=== PATIENT | male | born 1940 | race Hispanic/Latino ===

== ENCOUNTER 2020-09-04 08:57 | Observation (INO) | payer MEDICARE, MEDICAID ==
[2020-09-04 09:37] LABS: #Eosinphils 0.2 10x3/uL (0.0-0.5); #Monocytes 0.6 10x3/uL (0.0-1.1); #Neutrophils 6.2 10x3/uL (1.5-8.4); %Basophils 0.5 % (0.0-2.0); %Eosinophils 2.6 % (0.0-6.0); %Lymphocytes 15.1 % (18.0-47.0); %Monocytes 6.6 % (0.0-10.0); %Neutrophils 74.4 % (40.0-75.0); Hemoglobin 12.7 g/dL (13.5-17.5); Mean Corpuscular HGB CONC 33.5 g/dL (32.0-36.0); Mean Corpuscular Hemoglobin 32.3 pg (27.0-33.0); Mean Corpuscular Volume 96.4 fl (81.2-95.1); Mean Platelet Volume 10.9 fl (7.4-10.4); Platelet Count 172 10x3/uL (150-450); Red Blood Cell (RBC) Count 3.93 10x6/uL (4.32-5.72); White Blood Cell (WBC) Count 8.3 10x3/uL (3.5-10.5)
[2020-09-04 10:34] LABS: ALT (SGPT) 17 U/L (8-55); AST (SGOT) 23 U/L (5-34); Albumin 4.2 g/dL (3.4-4.8); Alkaline Phosphatase 70 U/L (40-110); Anion Gap 17 mmol/L (10-20); BUN (Urea Nitrogen) 12 mg/dL (8.4-25.7); Bilirubin, Total 0.6 mg/dL (0.2-1.2); Calc. Creatinine Clearance 0 mL/min (70-130); Carbon Dioxide 25 mmol/L (23-31); Chloride 95 mmol/L (98-107); Globulin 3.2 g/dL (2.4-3.5); Glucose 273 mg/dL (83-110); Potassium 3.8 mmol/L (3.5-5.1); Protein, Total 7.4 g/dL (5.8-8.1); Sodium 133 mmol/L (136-145)
[2020-09-04 10:41] LABS: CKMB 2.8 ng/mL (0-6.6)
[2020-09-04] MEDS ORDERED: Nitroglycerin 2% Ointment 1 INCH/1 GM Packet TOP PRN (12:03)
[2020-09-04] MEDS ORDERED: Acetaminophen 325 MG TAB PO PRN (12:05)
[2020-09-04 13:05] LABS: Troponin I 0.279 ng/mL (< 0.028)
[2020-09-04 13:39] LABS: SARS-CoV-2 NAA Rapid Test Not Detected (NotDetected)
[2020-09-04] MEDS ORDERED: Potassium Chloride 20 MEQ TAB PO SCH (15:30)
[2020-09-04] MEDS ORDERED: Clopidogrel Bisulfate 75 MG TAB PO SCH (15:30)
[2020-09-04] MEDS ORDERED: Furosemide 20 MG/2 ML VIAL SLOW IVP SCH (15:30)
[2020-09-04 15:31] VITALS: BMI 36.0
[2020-09-04 15:36] LABS: Troponin I 0.305 ng/mL (< 0.028)
[2020-09-04 17:04] VITALS: BP 164/78; TEMP 97.7
[2020-09-04] MEDS: Carvedilol 6.25 MG TAB PO SCH (17:27)
[2020-09-04] MEDS ORDERED: Atorvastatin Calcium 20 MG TAB PO SCH (21:00)
[2020-09-04] MEDS ORDERED: DESMOPRESSIN 0.2 MG PO SCH (21:00)
[2020-09-04] MEDS ORDERED: Carvedilol 6.25 MG TAB PO SCH (21:00)
[2020-09-04] MEDS: Isosorbide Mononitrate 20 MG TAB PO SCH (21:18)
[2020-09-04] MEDS: Docusate 100 MG CAP PO SCH (21:18)
[2020-09-05] MEDS ORDERED: Levothyroxine Sodium 50 MCG TAB PO SCH (06:00)
[2020-09-05] MEDS: Docusate 100 MG CAP PO SCH (08:05)
[2020-09-05] MEDS: Carvedilol 6.25 MG TAB PO SCH (08:05)
[2020-09-05] MEDS: Isosorbide Mononitrate 20 MG TAB PO SCH (08:05)
[2020-09-05] MEDS ORDERED: Clopidogrel Bisulfate 75 MG TAB PO SCH (09:00)
[2020-09-05] MEDS ORDERED: Fish Oil 1,000 MG CAP PO SCH (09:00)
[2020-09-05] MEDS ORDERED: Multivitamin W/ Minerals 1 TAB PO SCH (09:00)
[2020-09-05] MEDS ORDERED: Ezetimibe 10 MG TAB PO SCH (09:00)
[2020-09-05] MEDS ORDERED: metFORMIN 500 MG TAB PO SCH (09:00)
[2020-09-05] MEDS ORDERED: Lisinopril 5 MG TAB PO SCH (09:48)
[2020-09-05] MEDS ORDERED: Losartan 25 MG TAB PO SCH (10:00)
[2020-09-06] MEDS ORDERED: Prasugrel 10 MG TAB PO SCH (09:00)
[2020-09-06] MEDS ORDERED: Losartan 25 MG TAB PO SCH (09:00)
== END 2020-09-05 14:41 | disposition home or self-care (01) ==
LOC: CSHERS 08:57 → CSHTELE 11:56 → INTOOBSV 11:56 → CSHTELE 14:45 → UNDOADMIN 14:45 → UNDODISIN 09-05 14:41
PROVIDERS: ADMIT Specialist; ATTEND Specialist
DX: R07.9 Chest pain, unspecified (principal); I25.118 Atherosclerotic heart disease of native coronary artery with other forms of angina pectoris; Z95.5 Presence of coronary angioplasty implant and graft; I10 Essential (primary) hypertension; E78.2 Mixed hyperlipidemia; E11.9 Type 2 diabetes mellitus without complications; G47.33 Obstructive sleep apnea (adult) (pediatric); Z79.899 Other long term (current) drug therapy; Z79.84 Long term (current) use of oral hypoglycemic drugs; I25.2 Old myocardial infarction; M10.9 Gout, unspecified; Z95.1 Presence of aortocoronary bypass graft; Z79.02 Long term (current) use of antithrombotics/antiplatelets; Z20.822 Contact with and (suspected) exposure to COVID-19
CPT/HCPCS: 71045; 80053; 82553; 84484 ×2; 85025; 93005; 96374; 99285; G0378 ×3; U0002; 36415; J1940

== ENCOUNTER 2020-09-13 11:16 | Inpatient (IN) | payer MEDICARE, MEDICAID ==
[2020-09-13 12:16] LABS: #Eosinphils 0.2 10x3/uL (0.0-0.5); #Monocytes 0.5 10x3/uL (0.0-1.1); #Neutrophils 4.9 10x3/uL (1.5-8.4); %Basophils 0.6 % (0.0-2.0); %Eosinophils 2.4 % (0.0-6.0); %Lymphocytes 15.7 % (18.0-47.0); %Monocytes 7.3 % (0.0-10.0); %Neutrophils 72.7 % (40.0-75.0); Hemoglobin 12.6 g/dL (13.5-17.5); Mean Corpuscular HGB CONC 34.1 g/dL (32.0-36.0); Mean Corpuscular Volume 93.9 fl (81.2-95.1); Mean Platelet Volume 10.3 fl (7.4-10.4); Platelet Count 218 10x3/uL (150-450); RBC Distribution Width 13.2 % (11.5-14.5); Red Blood Cell (RBC) Count 3.94 10x6/uL (4.32-5.72); White Blood Cell (WBC) Count 6.7 10x3/uL (3.5-10.5)
[2020-09-13 12:28] LABS: ALT (SGPT) 26 U/L (8-55); AST (SGOT) 35 U/L (5-34); Albumin 4.2 g/dL (3.4-4.8); Alkaline Phosphatase 71 U/L (40-110); Anion Gap 14 mmol/L (10-20); BUN (Urea Nitrogen) 11 mg/dL (8.4-25.7); Bilirubin, Total 0.5 mg/dL (0.2-1.2); Calc. Creatinine Clearance 0 mL/min (70-130); Carbon Dioxide 27 mmol/L (23-31); Chloride 85 mmol/L (98-107); Globulin 3.5 g/dL (2.4-3.5); Glucose 183 mg/dL (83-110); Lipase 35 U/L (8-78); Potassium 5.3 mmol/L (3.5-5.1); Protein, Total 7.7 g/dL (5.8-8.1); Sodium 121 mmol/L (136-145)
[2020-09-13 12:30] LABS: Bilirubin Neg (Negative); Blood, Urine Negative (Negative); Clarity Clear (Clear); Glucose, Urine (Dipstick) Normal (Negative); Ketone, Urine Negative (Negative); Leukocyte Negative (Negative); Nitrite Negative (Negative); Protein, Urine (Dipstick) Negative (Neg-Trace); Specific Gravity, Urine 1.015 (1.002-1.036); Urobilinogen Normal mg/dL (Less than 2); pH, Urine 6.5 (5.0-9.0)
[2020-09-13 12:48] LABS: CKMB 2.5 ng/mL (0-6.6)
[2020-09-13] MEDS ORDERED: Ondansetron PF 4 MG/2 ML Vial ONE (13:48)
[2020-09-13] MEDS ORDERED: Acetaminophen 500 MG TAB ONE (15:24)
[2020-09-13] MEDS ORDERED: Acetaminophen 325 MG TAB PO PRN (15:45)
[2020-09-13] MEDS ORDERED: Ondansetron ODT 4 MG TAB PO PRN (15:45)
[2020-09-13] MEDS ORDERED: Dextrose 5% in Water 1,000 ML IV PRN (18:19)
[2020-09-13] MEDS ORDERED: Dextrose 50% Abboject 50 ML SYRINGE SLOW IVP PRN (18:19)
[2020-09-13] MEDS: Famotidine 20 MG TAB PO SCH (20:46)
[2020-09-13] MEDS: Carvedilol 6.25 MG TAB PO SCH (20:46)
[2020-09-13] MEDS: Isosorbide Mononitrate 20 MG TAB PO SCH (22:56)
[2020-09-13] MEDS ORDERED: diphenhydrAMINE 25 MG CAP PO SCH (23:45)
[2020-09-14 00:50] VITALS: BMI 36.3
[2020-09-14 06:16] LABS: #Eosinphils 0.2 10x3/uL (0.0-0.5); #Monocytes 0.7 10x3/uL (0.0-1.1); #Neutrophils 3.6 10x3/uL (1.5-8.4); %Basophils 0.5 % (0.0-2.0); %Eosinophils 3.4 % (0.0-6.0); %Lymphocytes 26.7 % (18.0-47.0); %Monocytes 10.7 % (0.0-10.0); %Neutrophils 57.4 % (40.0-75.0); Hemoglobin 12.3 g/dL (13.5-17.5); Mean Corpuscular HGB CONC 33.6 g/dL (32.0-36.0); Mean Corpuscular Hemoglobin 31.9 pg (27.0-33.0); Mean Corpuscular Volume 95.1 fl (81.2-95.1); Mean Platelet Volume 10.6 fl (7.4-10.4); Platelet Count 206 10x3/uL (150-450); RBC Distribution Width 13.3 % (11.5-14.5); Red Blood Cell (RBC) Count 3.85 10x6/uL (4.32-5.72); White Blood Cell (WBC) Count 6.3 10x3/uL (3.5-10.5)
[2020-09-14 06:28] LABS: Anion Gap 14 mmol/L (10-20); BUN (Urea Nitrogen) 8 mg/dL (8.4-25.7); Calc. Creatinine Clearance 111 mL/min (70-130); Calcium 8.5 mg/dL (7.8-10.44); Carbon Dioxide 27 mmol/L (23-31); Chloride 90 mmol/L (98-107); Glucose 105 mg/dL (83-110); Potassium 4.4 mmol/L (3.5-5.1); Sodium 127 mmol/L (136-145)
[2020-09-14] MEDS: Atorvastatin Calcium 20 MG TAB PO SCH (08:50)
[2020-09-14] MEDS: Prasugrel 10 MG TAB PO SCH (08:50)
[2020-09-14] MEDS: Isosorbide Mononitrate 20 MG TAB PO SCH ×2 (08:50→23:24)
[2020-09-14] MEDS: Ezetimibe 10 MG TAB PO SCH (08:50)
[2020-09-14] MEDS: Famotidine 20 MG TAB PO SCH ×2 (08:50→23:23)
[2020-09-14] MEDS: Lisinopril 5 MG TAB PO SCH (08:50)
[2020-09-14] MEDS: Levothyroxine Sodium 50 MCG TAB PO SCH (08:50)
[2020-09-14] MEDS: Carvedilol 6.25 MG TAB PO SCH (08:50)
[2020-09-14] MEDS ORDERED: Enoxaparin Sodium 40 MG/0.4 ML SYRINGE SC SCH (09:00)
[2020-09-14] MEDS: HumaLOG 300 UNITS/3 ML VIAL SC PRN (13:03)
[2020-09-14] MEDS: Sodium Chloride 0.9% 1,000 ML IV SCH ×2 (17:16→23:28)
[2020-09-14] MEDS ORDERED: diphenhydrAMINE 25 MG CAP PO SCH (22:45)
[2020-09-15] MEDS: Carvedilol 6.25 MG TAB PO SCH ×3 (00:12→22:15)
[2020-09-15 04:29] LABS: #Eosinphils 0.1 10x3/uL (0.0-0.5); #Monocytes 0.8 10x3/uL (0.0-1.1); #Neutrophils 5.1 10x3/uL (1.5-8.4); %Basophils 0.5 % (0.0-2.0); %Eosinophils 1.7 % (0.0-6.0); %Lymphocytes 18.3 % (18.0-47.0); %Monocytes 10.6 % (0.0-10.0); %Neutrophils 67.7 % (40.0-75.0); Mean Corpuscular HGB CONC 33.2 g/dL (32.0-36.0); Mean Corpuscular Hemoglobin 31.9 pg (27.0-33.0); Mean Platelet Volume 10.4 fl (7.4-10.4); Platelet Count 210 10x3/uL (150-450); RBC Distribution Width 13.6 % (11.5-14.5); Red Blood Cell (RBC) Count 3.76 10x6/uL (4.32-5.72); White Blood Cell (WBC) Count 7.6 10x3/uL (3.5-10.5)
[2020-09-15 04:41] LABS: Anion Gap 16 mmol/L (10-20); BUN (Urea Nitrogen) 15 mg/dL (8.4-25.7); Calc. Creatinine Clearance 80 mL/min (70-130); Calcium 8.6 mg/dL (7.8-10.44); Carbon Dioxide 24 mmol/L (23-31); Chloride 100 mmol/L (98-107); Glucose 124 mg/dL (83-110); Potassium 4.8 mmol/L (3.5-5.1); Sodium 135 mmol/L (136-145)
[2020-09-15] MEDS: Prasugrel 10 MG TAB PO SCH (08:34)
[2020-09-15] MEDS: Levothyroxine Sodium 50 MCG TAB PO SCH (08:35)
[2020-09-15] MEDS: Lisinopril 5 MG TAB PO SCH (08:35)
[2020-09-15] MEDS: Famotidine 20 MG TAB PO SCH ×2 (08:35→22:16)
[2020-09-15] MEDS: Atorvastatin Calcium 20 MG TAB PO SCH (08:36)
[2020-09-15] MEDS: Isosorbide Mononitrate 20 MG TAB PO SCH (08:36)
[2020-09-15] MEDS: Ezetimibe 10 MG TAB PO SCH (08:37)
[2020-09-15] MEDS: Sodium Chloride 0.9% 1,000 ML IV SCH (09:29)
[2020-09-15] MEDS: HumaLOG 300 UNITS/3 ML VIAL SC PRN (12:37)
[2020-09-16] MEDS: Isosorbide Mononitrate 20 MG TAB PO SCH ×3 (00:41→20:36)
[2020-09-16] MEDS ORDERED: diphenhydrAMINE 25 MG CAP PO SCH ×2 (01:30→23:45)
[2020-09-16 04:44] LABS: #Eosinphils 0.2 10x3/uL (0.0-0.5); #Monocytes 0.7 10x3/uL (0.0-1.1); #Neutrophils 5.9 10x3/uL (1.5-8.4); %Basophils 0.5 % (0.0-2.0); %Eosinophils 2.6 % (0.0-6.0); %Lymphocytes 20.3 % (18.0-47.0); %Monocytes 8.3 % (0.0-10.0); %Neutrophils 67.5 % (40.0-75.0); Hemoglobin 11.7 g/dL (13.5-17.5); Mean Corpuscular HGB CONC 32.3 g/dL (32.0-36.0); Mean Corpuscular Hemoglobin 31.4 pg (27.0-33.0); Mean Corpuscular Volume 97.1 fl (81.2-95.1); Mean Platelet Volume 10.3 fl (7.4-10.4); Platelet Count 218 10x3/uL (150-450); RBC Distribution Width 14.1 % (11.5-14.5); Red Blood Cell (RBC) Count 3.73 10x6/uL (4.32-5.72); White Blood Cell (WBC) Count 8.7 10x3/uL (3.5-10.5)
[2020-09-16 04:56] LABS: Anion Gap 16 mmol/L (10-20); BUN (Urea Nitrogen) 12 mg/dL (8.4-25.7); Calc. Creatinine Clearance 99 mL/min (70-130); Carbon Dioxide 28 mmol/L (23-31); Chloride 100 mmol/L (98-107); Glucose 121 mg/dL (83-110); Potassium 4.5 mmol/L (3.5-5.1); Sodium 139 mmol/L (136-145)
[2020-09-16] MEDS: Atorvastatin Calcium 20 MG TAB PO SCH (08:15)
[2020-09-16] MEDS: Lisinopril 5 MG TAB PO SCH (08:15)
[2020-09-16] MEDS: Levothyroxine Sodium 50 MCG TAB PO SCH (08:15)
[2020-09-16] MEDS: Carvedilol 6.25 MG TAB PO SCH ×2 (08:15→20:36)
[2020-09-16] MEDS: Prasugrel 10 MG TAB PO SCH (08:15)
[2020-09-16] MEDS: Ezetimibe 10 MG TAB PO SCH (08:15)
[2020-09-16] MEDS: Famotidine 20 MG TAB PO SCH ×2 (08:15→20:36)
[2020-09-16] MEDS: HumaLOG 300 UNITS/3 ML VIAL SC PRN (23:33)
[2020-09-17] MEDS: Isosorbide Mononitrate 20 MG TAB PO SCH ×2 (11:28→20:10)
[2020-09-17] MEDS: Atorvastatin Calcium 20 MG TAB PO SCH (11:29)
[2020-09-17] MEDS: Famotidine 20 MG TAB PO SCH ×2 (11:29→20:10)
[2020-09-17] MEDS: Lisinopril 5 MG TAB PO SCH (11:29)
[2020-09-17] MEDS: Levothyroxine Sodium 50 MCG TAB PO SCH (11:29)
[2020-09-17] MEDS: Ezetimibe 10 MG TAB PO SCH (11:29)
[2020-09-17] MEDS: Prasugrel 10 MG TAB PO SCH (19:15)
[2020-09-17 23:08] LABS: Anion Gap 13 mmol/L (10-20); BUN (Urea Nitrogen) 14 mg/dL (8.4-25.7); Calc. Creatinine Clearance 87 mL/min (70-130); Calcium 8.7 mg/dL (7.8-10.44); Carbon Dioxide 30 mmol/L (23-31); Chloride 98 mmol/L (98-107); Glucose 113 mg/dL (83-110); Magnesium 1.6 mg/dL (1.6-2.6); Potassium 4.3 mmol/L (3.5-5.1); Sodium 137 mmol/L (136-145)
[2020-09-17] MEDS ORDERED: Magnesium Sulfate/D5W 1 GM/100 ML BAG IVPB SCH (23:15)
[2020-09-18 05:11] LABS: Anion Gap 15 mmol/L (10-20); BUN (Urea Nitrogen) 12 mg/dL (8.4-25.7); Calc. Creatinine Clearance 101 mL/min (70-130); Carbon Dioxide 27 mmol/L (23-31); Chloride 100 mmol/L (98-107); Glucose 127 mg/dL (83-110); Potassium 4.3 mmol/L (3.5-5.1); Sodium 138 mmol/L (136-145)
[2020-09-18] MEDS: Levothyroxine Sodium 50 MCG TAB PO SCH (08:44)
[2020-09-18] MEDS: Atorvastatin Calcium 20 MG TAB PO SCH (08:45)
[2020-09-18] MEDS: Prasugrel 10 MG TAB PO SCH (08:45)
[2020-09-18] MEDS: Isosorbide Mononitrate 20 MG TAB PO SCH ×2 (08:45→21:51)
[2020-09-18] MEDS: Famotidine 20 MG TAB PO SCH ×2 (08:45→21:52)
[2020-09-18] MEDS: Ezetimibe 10 MG TAB PO SCH (08:45)
[2020-09-18] MEDS: Lisinopril 5 MG TAB PO SCH (08:45)
[2020-09-18] MEDS: HumaLOG 300 UNITS/3 ML VIAL SC PRN (21:52)
[2020-09-19] MEDS: Ezetimibe 10 MG TAB PO SCH (08:35)
[2020-09-19] MEDS: Atorvastatin Calcium 20 MG TAB PO SCH (08:35)
[2020-09-19] MEDS: Famotidine 20 MG TAB PO SCH (08:35)
[2020-09-19] MEDS: Prasugrel 10 MG TAB PO SCH (08:35)
[2020-09-19] MEDS: Levothyroxine Sodium 50 MCG TAB PO SCH (08:36)
[2020-09-19] MEDS: Lisinopril 5 MG TAB PO SCH (08:36)
[2020-09-19] MEDS: Isosorbide Mononitrate 20 MG TAB PO SCH (08:36)
[2020-09-19 11:49] VITALS: TEMP 97.7
[2020-09-19 11:51] VITALS: BP 127/80
== END 2020-09-19 15:45 | disposition home or self-care (01) | DRG 312 ==
LOC: CSHERS 11:16 → CSHTELE 16:57
PROVIDERS: ADMIT Family Medicine; ATTEND Internal Medicine
DX: I95.1 Orthostatic hypotension (principal); E87.1 Hypo-osmolality and hyponatremia; E03.9 Hypothyroidism, unspecified; E78.5 Hyperlipidemia, unspecified; I25.10 Atherosclerotic heart disease of native coronary artery without angina pectoris; G47.33 Obstructive sleep apnea (adult) (pediatric); K21.9 Gastro-esophageal reflux disease without esophagitis; E87.5 Hyperkalemia; D64.9 Anemia, unspecified; R35.8 Other polyuria; E86.1 Hypovolemia; E11.22 Type 2 diabetes mellitus with diabetic chronic kidney disease; I12.9 Hypertensive chronic kidney disease with stage 1 through stage 4 chronic kidney disease, or unspecified chronic kidney disease; N18.2 Chronic kidney disease, stage 2 (mild); I44.1 Atrioventricular block, second degree; Z79.84 Long term (current) use of oral hypoglycemic drugs; Z85.46 Personal history of malignant neoplasm of prostate; Z88.8 Allergy status to other drugs, medicaments and biological substances; Z95.1 Presence of aortocoronary bypass graft; Z98.49 Cataract extraction status, unspecified eye; Z79.82 Long term (current) use of aspirin; Z95.5 Presence of coronary angioplasty implant and graft; Z79.890 Hormone replacement therapy; Z79.899 Other long term (current) drug therapy; Z82.49 Family history of ischemic heart disease and other diseases of the circulatory system; D63.1 Anemia in chronic kidney disease
CPT/HCPCS: 36415; 36416; 71045; 80048; 80053; 81003; 82553; 83690; 83735; 83930; 83935; 84300; 84443; 84484; 85025; 93005; 93010; 96374; J1815; J2405; J3475; Q0163

== ENCOUNTER 2021-04-29 10:59 | Inpatient (IN) | payer MEDICARE, MEDICAID ==
[2021-04-29 13:16] LABS: #Basophils 0.1 10x3/uL (0.0-0.2); #Eosinphils 0.1 10x3/uL (0.0-0.5); #Monocytes 0.8 10x3/uL (0.0-1.1); #Neutrophils 5.6 10x3/uL (1.5-8.4); %Basophils 0.9 % (0.0-2.0); %Eosinophils 1.8 % (0.0-6.0); %Lymphocytes 9.1 % (18.0-47.0); %Monocytes 10.4 % (0.0-10.0); %Neutrophils 73.3 % (40.0-75.0); Mean Corpuscular HGB CONC 32.1 g/dL (32.0-36.0); Mean Corpuscular Hemoglobin 31.8 pg (27.0-33.0); Mean Corpuscular Volume 99.1 fl (81.2-95.1); Platelet Count 255 10x3/uL (150-450); RBC Distribution Width 16.1 % (11.5-14.5); Red Blood Cell (RBC) Count 3.46 10x6/uL (4.32-5.72); White Blood Cell (WBC) Count 7.6 10x3/uL (3.5-10.5)
[2021-04-29] MEDS ORDERED: Meclizine HCl 25 MG TAB ONE (13:24)
[2021-04-29 13:33] LABS: ALT (SGPT) 17 U/L (8-55); AST (SGOT) 20 U/L (5-34); Albumin 3.9 g/dL (3.4-4.8); Alkaline Phosphatase 154 U/L (40-110); Anion Gap 15 mmol/L (10-20); BUN (Urea Nitrogen) 14 mg/dL (8.4-25.7); Bilirubin, Total 0.6 mg/dL (0.2-1.2); Calc. Creatinine Clearance 0 mL/min (70-130); Calcium 8.3 mg/dL (7.8-10.44); Carbon Dioxide 26 mmol/L (23-31); Chloride 98 mmol/L (98-107); Globulin 3.2 g/dL (2.4-3.5); Glucose 131 mg/dL (83-110); Magnesium 1.4 mg/dL (1.6-2.6); Potassium 3.8 mmol/L (3.5-5.1); Protein, Total 7.1 g/dL (5.8-8.1); Sodium 135 mmol/L (136-145)
[2021-04-29] MEDS ORDERED: Magnesium 2 GM/50 ML BAG (IN WATER) ONE (13:52)
[2021-04-29 14:01] LABS: SARS-CoV-2 NAA Rapid Test Not Detected (NotDetected)
[2021-04-29 16:37] LABS: Troponin I Less than 0.010 ng/mL (< 0.028)
[2021-04-29] MEDS ORDERED: Dextrose 50% Abboject 50 ML SYRINGE SLOW IVP PRN (17:03)
[2021-04-29] MEDS ORDERED: Ondansetron ODT 4 MG TAB PO PRN (17:03)
[2021-04-29] MEDS ORDERED: Dextrose 5% in Water 1,000 ML IV PRN (17:03)
[2021-04-29] MEDS ORDERED: Acetaminophen 325 MG TAB ONE (17:22)
[2021-04-29 19:37] LABS: Troponin I Less than 0.010 ng/mL (< 0.028)
[2021-04-29 20:38] VITALS: BMI 35.9
[2021-04-29 22:49] LABS: Bilirubin Neg (Negative); Blood, Urine Negative (Negative); Clarity Clear (Clear); Glucose, Urine (Dipstick) Normal (Negative); Ketone, Urine Negative (Negative); Leukocyte Negative (Negative); Nitrite Negative (Negative); Protein, Urine (Dipstick) Negative (Neg-Trace); Specific Gravity, Urine 1.005 (1.002-1.036); Urobilinogen Normal mg/dL (Less than 2)
[2021-04-29 22:52] LABS: Urine Culture Reflex No No
[2021-04-29 22:57] LABS: Bacteria/HPF None Seen HPF (None Seen); RBC/HPF None Seen HPF (0-3); Squamous Epithelial None Seen HPF (0-3); WBC/HPF 0-3 HPF (0-3)
[2021-04-30 06:54] LABS: Hemoglobin 10.6 g/dL (13.5-17.5); Mean Corpuscular HGB CONC 33.2 g/dL (32.0-36.0); Mean Corpuscular Hemoglobin 32.4 pg (27.0-33.0); Mean Corpuscular Volume 97.6 fl (81.2-95.1); Mean Platelet Volume 10.5 fl (7.4-10.4); Platelet Count 236 10x3/uL (150-450); RBC Distribution Width 16.2 % (11.5-14.5); Red Blood Cell (RBC) Count 3.27 10x6/uL (4.32-5.72); White Blood Cell (WBC) Count 6.8 10x3/uL (3.5-10.5)
[2021-04-30 07:08] LABS: MDiff Complete? YES
[2021-04-30 07:12] LABS: Band 23 % (5-11); Eosinophils 2 % (0-10); Lymphocytes 8 % (21-51); Monocytes 9 % (0-10); Myelocyte 1 % (0-0); Neutrophil 53 % (42-75); Nucleated RBC 1 % (0); Platelet Morphology Comment Appears Adequate; Reactive Lymphocytes 4 % (0-10)
[2021-04-30 07:13] LABS: RBC Morphology Normal
[2021-04-30 07:19] LABS: ALT (SGPT) 19 U/L (8-55); AST (SGOT) 22 U/L (5-34); Albumin 3.6 g/dL (3.4-4.8); Alkaline Phosphatase 132 U/L (40-110); Anion Gap 14 mmol/L (10-20); BUN (Urea Nitrogen) 10 mg/dL (8.4-25.7); Bilirubin, Total 0.7 mg/dL (0.2-1.2); Calc. Creatinine Clearance 108 mL/min (70-130); Calcium 7.7 mg/dL (7.8-10.44); Carbon Dioxide 25 mmol/L (23-31); Chloride 100 mmol/L (98-107); Globulin 2.8 g/dL (2.4-3.5); Glucose 163 mg/dL (83-110); Magnesium 1.6 mg/dL (1.6-2.6); Potassium 3.5 mmol/L (3.5-5.1); Protein, Total 6.4 g/dL (5.8-8.1); Sodium 135 mmol/L (136-145)
[2021-04-30] MEDS ORDERED: Minocycline HCl 50 MG CAP PO SCH (09:00)
[2021-04-30] MEDS: Isosorbide Mononitrate 20 MG TAB PO SCH ×2 (10:42→21:24)
[2021-04-30] MEDS: Carvedilol 6.25 MG TAB PO SCH ×2 (10:43→21:23)
[2021-04-30] MEDS: Prasugrel 10 MG TAB PO SCH (10:43)
[2021-04-30] MEDS: Aspirin 81 mg Enteric Coated Tablet PO SCH (10:43)
[2021-04-30] MEDS: Atorvastatin Calcium 20 MG TAB PO SCH (10:43)
[2021-04-30] MEDS: metFORMIN 500 MG TAB PO SCH ×2 (10:43→21:23)
[2021-04-30] MEDS: Ezetimibe 10 MG TAB PO SCH (10:44)
[2021-04-30] MEDS ORDERED: Potassium Chloride 20 MEQ TAB PO SCH (13:00)
[2021-04-30] MEDS ORDERED: Magnesium 2 GM/50 ML 2 GM in Premix Bag 1 BAG IVPB SCH (13:00)
[2021-04-30] MEDS ORDERED: Losartan 25 MG TAB PO SCH (21:00)
[2021-04-30] MEDS: traZODone HCl 50 MG TAB PO PRN (21:23)
[2021-04-30] MEDS: Desmopressin 0.2 mg Tablet PO SCH (21:27)
[2021-05-01] MEDS: Levothyroxine Sodium 50 MCG TAB PO SCH (06:26)
[2021-05-01 09:58] LABS: Anion Gap 11 mmol/L (10-20); BUN (Urea Nitrogen) 12 mg/dL (8.4-25.7); Calc. Creatinine Clearance 110 mL/min (70-130); Calcium 7.4 mg/dL (7.8-10.44); Carbon Dioxide 25 mmol/L (23-31); Chloride 98 mmol/L (98-107); Glucose 171 mg/dL (83-110); Magnesium 1.8 mg/dL (1.6-2.6); Potassium 4.1 mmol/L (3.5-5.1); Sodium 130 mmol/L (136-145)
[2021-05-01] MEDS ORDERED: Calcium Gluconate 4.6 MEQ in Sodium Chloride 0.9% 100 ML IVPB SCH (10:30)
[2021-05-01] MEDS ORDERED: Magnesium 2 GM/50 ML 2 GM in Premix Bag 1 BAG IVPB SCH (10:30)
[2021-05-01] MEDS: Ezetimibe 10 MG TAB PO SCH (12:11)
[2021-05-01] MEDS: Aspirin 81 mg Enteric Coated Tablet PO SCH (12:11)
[2021-05-01] MEDS: Prasugrel 10 MG TAB PO SCH (12:11)
[2021-05-01] MEDS: Atorvastatin Calcium 20 MG TAB PO SCH (12:12)
[2021-05-01] MEDS: Carvedilol 6.25 MG TAB PO SCH ×2 (12:12→21:19)
[2021-05-01] MEDS: metFORMIN 500 MG TAB PO SCH ×2 (12:12→21:20)
[2021-05-01] MEDS: HumaLOG 300 UNITS/3 ML VIAL SC PRN (12:55)
[2021-05-01] MEDS: traZODone HCl 50 MG TAB PO PRN (21:19)
[2021-05-01] MEDS: Desmopressin 0.2 mg Tablet PO SCH (21:20)
[2021-05-02] MEDS: Levothyroxine Sodium 50 MCG TAB PO SCH (05:06)
[2021-05-02] MEDS: Isosorbide Dinitrate 10 MG TAB PO SCH (10:30)
[2021-05-02] MEDS: Aspirin 81 mg Enteric Coated Tablet PO SCH (10:30)
[2021-05-02] MEDS: Atorvastatin Calcium 20 MG TAB PO SCH (10:30)
[2021-05-02] MEDS: metFORMIN 500 MG TAB PO SCH ×2 (10:30→21:17)
[2021-05-02] MEDS: Carvedilol 6.25 MG TAB PO SCH (10:30)
[2021-05-02] MEDS: Ezetimibe 10 MG TAB PO SCH (10:30)
[2021-05-02] MEDS: Prasugrel 10 MG TAB PO SCH (10:31)
[2021-05-02] MEDS ORDERED: Carvedilol 6.25 MG TAB PO SCH (12:00)
[2021-05-02] MEDS: HumaLOG 300 UNITS/3 ML VIAL SC PRN (12:09)
[2021-05-02] MEDS: Carvedilol 12.5 MG TAB PO SCH (18:31)
[2021-05-02] MEDS: Desmopressin 0.2 mg Tablet PO SCH (21:17)
[2021-05-02] MEDS: Acetaminophen 325 MG TAB PO PRN (21:17)
[2021-05-03] MEDS: Levothyroxine Sodium 50 MCG TAB PO SCH (05:17)
[2021-05-03] MEDS: Atorvastatin Calcium 20 MG TAB PO SCH (08:59)
[2021-05-03] MEDS: Aspirin 81 mg Enteric Coated Tablet PO SCH (08:59)
[2021-05-03] MEDS: Carvedilol 12.5 MG TAB PO SCH ×2 (08:59→17:38)
[2021-05-03] MEDS: Isosorbide Dinitrate 10 MG TAB PO SCH (09:00)
[2021-05-03] MEDS: Prasugrel 10 MG TAB PO SCH (09:00)
[2021-05-03] MEDS: metFORMIN 500 MG TAB PO SCH ×2 (09:00→20:24)
[2021-05-03] MEDS: Ezetimibe 10 MG TAB PO SCH (09:00)
[2021-05-03] MEDS: Acetaminophen 325 MG TAB PO PRN ×2 (13:56→20:24)
[2021-05-03] MEDS: HumaLOG 300 UNITS/3 ML VIAL SC PRN (13:57)
[2021-05-03] MEDS ORDERED: predniSONE 20 MG TAB PO SCH (16:00)
[2021-05-03] MEDS: Doxycycline 100 MG CAP PO SCH (17:39)
[2021-05-03] MEDS: Desmopressin 0.2 mg Tablet PO SCH (20:23)
[2021-05-03] MEDS: traZODone HCl 50 MG TAB PO PRN (21:39)
[2021-05-04] MEDS: Doxycycline 100 MG CAP PO SCH ×2 (05:06→17:34)
[2021-05-04] MEDS: Levothyroxine Sodium 50 MCG TAB PO SCH (05:06)
[2021-05-04] MEDS: HumaLOG 300 UNITS/3 ML VIAL SC PRN ×3 (05:19→17:40)
[2021-05-04] MEDS: Atorvastatin Calcium 20 MG TAB PO SCH (09:27)
[2021-05-04] MEDS: Carvedilol 12.5 MG TAB PO SCH ×2 (09:27→17:34)
[2021-05-04] MEDS: Ezetimibe 10 MG TAB PO SCH (09:27)
[2021-05-04] MEDS: Isosorbide Dinitrate 10 MG TAB PO SCH (09:28)
[2021-05-04] MEDS: Prasugrel 10 MG TAB PO SCH (09:28)
[2021-05-04] MEDS: Aspirin 81 mg Enteric Coated Tablet PO SCH (09:28)
[2021-05-04] MEDS: predniSONE 20 MG TAB PO SCH (09:28)
[2021-05-04] MEDS: metFORMIN 500 MG TAB PO SCH ×2 (09:28→21:11)
[2021-05-04 10:24] LABS: #Monocytes 0.6 10x3/uL (0.0-1.1); #Neutrophils 5.2 10x3/uL (1.5-8.4); %Basophils 0.5 % (0.0-2.0); %Eosinophils 0.2 % (0.0-6.0); %Lymphocytes 8.7 % (18.0-47.0); %Monocytes 8.6 % (0.0-10.0); %Neutrophils 79.7 % (40.0-75.0); Hemoglobin 8.7 g/dL (13.5-17.5); Mean Corpuscular HGB CONC 32.8 g/dL (32.0-36.0); Mean Corpuscular Hemoglobin 31.9 pg (27.0-33.0); Mean Corpuscular Volume 97.1 fl (81.2-95.1); Mean Platelet Volume 10.3 fl (7.4-10.4); Platelet Count 234 10x3/uL (150-450); RBC Distribution Width 14.6 % (11.5-14.5); Red Blood Cell (RBC) Count 2.73 10x6/uL (4.32-5.72); White Blood Cell (WBC) Count 6.5 10x3/uL (3.5-10.5)
[2021-05-04 10:30] LABS: Anion Gap 12 mmol/L (10-20); BUN (Urea Nitrogen) 11 mg/dL (8.4-25.7); Calc. Creatinine Clearance 120 mL/min (70-130); Calcium 7.7 mg/dL (7.8-10.44); Carbon Dioxide 27 mmol/L (23-31); Chloride 92 mmol/L (98-107); Glucose 201 mg/dL (83-110); Potassium 4.2 mmol/L (3.5-5.1); Sodium 127 mmol/L (136-145)
[2021-05-04] MEDS: Azithromycin 250 MG TAB PO SCH (17:37)
[2021-05-04] MEDS ORDERED: Azithromycin 250 MG TAB PO SCH (21:00)
[2021-05-04] MEDS: Desmopressin 0.2 mg Tablet PO SCH (21:11)
[2021-05-04] MEDS: traZODone HCl 50 MG TAB PO PRN (21:12)
[2021-05-04] MEDS: Acetaminophen 325 MG TAB PO PRN (21:12)
[2021-05-05 04:11] LABS: #Neutrophils 7.8 10x3/uL (1.5-8.4); %Basophils 0.4 % (0.0-2.0); %Eosinophils 0.3 % (0.0-6.0); %Lymphocytes 8.6 % (18.0-47.0); %Monocytes 10.5 % (0.0-10.0); %Neutrophils 77.9 % (40.0-75.0); Hemoglobin 8.4 g/dL (13.5-17.5); Mean Corpuscular HGB CONC 34.6 g/dL (32.0-36.0); Mean Corpuscular Hemoglobin 32.7 pg (27.0-33.0); Mean Corpuscular Volume 94.6 fl (81.2-95.1); Mean Platelet Volume 10.4 fl (7.4-10.4); Platelet Count 229 10x3/uL (150-450); RBC Distribution Width 14.9 % (11.5-14.5); Red Blood Cell (RBC) Count 2.57 10x6/uL (4.32-5.72)
[2021-05-05 04:22] LABS: Anion Gap 11 mmol/L (10-20); BUN (Urea Nitrogen) 10 mg/dL (8.4-25.7); Calc. Creatinine Clearance 122 mL/min (70-130); Calcium 8.1 mg/dL (7.8-10.44); Carbon Dioxide 27 mmol/L (23-31); Chloride 93 mmol/L (98-107); Glucose 161 mg/dL (83-110); Potassium 4.3 mmol/L (3.5-5.1); Sodium 127 mmol/L (136-145)
[2021-05-05] MEDS: Doxycycline 100 MG CAP PO SCH ×2 (05:17→18:42)
[2021-05-05] MEDS: Levothyroxine Sodium 50 MCG TAB PO SCH (05:18)
[2021-05-05] MEDS ORDERED: Furosemide 40 MG/4 ML VIAL SLOW IVP SCH ×4 (08:45→14:00)
[2021-05-05] MEDS: Atorvastatin Calcium 20 MG TAB PO SCH (09:50)
[2021-05-05] MEDS: metFORMIN 500 MG TAB PO SCH ×2 (09:50→21:52)
[2021-05-05] MEDS: Isosorbide Dinitrate 10 MG TAB PO SCH (09:51)
[2021-05-05] MEDS: Prasugrel 10 MG TAB PO SCH (09:51)
[2021-05-05] MEDS: predniSONE 20 MG TAB PO SCH (09:51)
[2021-05-05] MEDS: Ezetimibe 10 MG TAB PO SCH (09:51)
[2021-05-05] MEDS: Aspirin 81 mg Enteric Coated Tablet PO SCH (09:51)
[2021-05-05] MEDS: Carvedilol 12.5 MG TAB PO SCH ×2 (09:51→18:41)
[2021-05-05] MEDS ORDERED: Furosemide 20 MG/2 ML VIAL SLOW IVP SCH (14:00)
[2021-05-05 14:10] LABS: Magnesium 1.3 mg/dL (1.6-2.6)
[2021-05-05] MEDS: Azithromycin 250 MG TAB PO SCH (18:42)
[2021-05-05] MEDS ORDERED: Magnesium 2 GM/50 ML 2 GM in Premix Bag 1 BAG IVPB SCH (19:45)
[2021-05-05] MEDS: Desmopressin 0.2 mg Tablet PO SCH (21:52)
[2021-05-05] MEDS: HumaLOG 300 UNITS/3 ML VIAL SC PRN (22:11)
[2021-05-05] MEDS: traZODone HCl 50 MG TAB PO PRN (22:12)
[2021-05-05] MEDS ORDERED: Guaifenesin DM 100-10/5 ML UDCUP PO SCH (23:30)
[2021-05-06 04:13] LABS: #Basophils 0.1 10x3/uL (0.0-0.2); #Neutrophils 7.7 10x3/uL (1.5-8.4); %Basophils 0.5 % (0.0-2.0); %Eosinophils 0.1 % (0.0-6.0); %Lymphocytes 10.4 % (18.0-47.0); %Monocytes 9.6 % (0.0-10.0); %Neutrophils 74.7 % (40.0-75.0); Hemoglobin 8.4 g/dL (13.5-17.5); Mean Corpuscular HGB CONC 33.6 g/dL (32.0-36.0); Mean Corpuscular Hemoglobin 32.4 pg (27.0-33.0); Mean Corpuscular Volume 96.5 fl (81.2-95.1); Mean Platelet Volume 10.1 fl (7.4-10.4); Platelet Count 261 10x3/uL (150-450); RBC Distribution Width 14.9 % (11.5-14.5); Red Blood Cell (RBC) Count 2.59 10x6/uL (4.32-5.72); White Blood Cell (WBC) Count 10.3 10x3/uL (3.5-10.5)
[2021-05-06 04:21] LABS: Anion Gap 14 mmol/L (10-20); BUN (Urea Nitrogen) 14 mg/dL (8.4-25.7); Calc. Creatinine Clearance 117 mL/min (70-130); Calcium 7.8 mg/dL (7.8-10.44); Carbon Dioxide 30 mmol/L (23-31); Chloride 88 mmol/L (98-107); Glucose 131 mg/dL (83-110); Magnesium 1.6 mg/dL (1.6-2.6); Potassium 4.4 mmol/L (3.5-5.1); Sodium 128 mmol/L (136-145)
[2021-05-06] MEDS: Levothyroxine Sodium 50 MCG TAB PO SCH (05:38)
[2021-05-06] MEDS: Doxycycline 100 MG CAP PO SCH ×2 (05:38→18:24)
[2021-05-06] MEDS: Isosorbide Dinitrate 10 MG TAB PO SCH (08:39)
[2021-05-06] MEDS: metFORMIN 500 MG TAB PO SCH ×2 (08:40→20:46)
[2021-05-06] MEDS: Carvedilol 12.5 MG TAB PO SCH ×2 (08:40→18:24)
[2021-05-06] MEDS: Prasugrel 10 MG TAB PO SCH (08:40)
[2021-05-06] MEDS: predniSONE 20 MG TAB PO SCH (08:40)
[2021-05-06] MEDS: Aspirin 81 mg Enteric Coated Tablet PO SCH (08:40)
[2021-05-06] MEDS: Ezetimibe 10 MG TAB PO SCH (08:40)
[2021-05-06] MEDS: Atorvastatin Calcium 20 MG TAB PO SCH (08:40)
[2021-05-06 10:10] LABS: Band 5 % (5-11); Eosinophils 1 % (0-10); Lymphocytes 15 % (21-51); Neutrophil 71 % (42-75)
[2021-05-06 10:13] LABS: Monocytes 7 % (0-10)
[2021-05-06 10:14] LABS: MDiff Complete? YES
[2021-05-06 10:15] LABS: Platelet Morphology Comment Appears Adequate; RBC Morphology Normal
[2021-05-06] MEDS ORDERED: Magnesium Sulfate 2 GM in Sodium Chloride 0.9% 100 ML IVPB SCH (10:15)
[2021-05-06] MEDS ORDERED: Magnesium 2 GM/50 ML 2 GM in Premix Bag 1 BAG IVPB SCH ×2 (10:30→12:30)
[2021-05-06 12:49] LABS: Potassium, Urine 35.7 mmol/L; Sodium, Urine Less than 20 mmol/L (Not Available)
[2021-05-06] MEDS: guaiFENesin/Codeine Phosphate 100 mg/10 mg 5 ml UD Cup PO PRN ×2 (13:19→20:46)
[2021-05-06] MEDS: Azithromycin 250 MG TAB PO SCH (18:24)
[2021-05-06] MEDS: traZODone HCl 50 MG TAB PO PRN (20:46)
[2021-05-06] MEDS: HumaLOG 300 UNITS/3 ML VIAL SC PRN (20:53)
[2021-05-07] MEDS: guaiFENesin/Codeine Phosphate 100 mg/10 mg 5 ml UD Cup PO PRN ×3 (06:08→17:41)
[2021-05-07] MEDS: Levothyroxine Sodium 50 MCG TAB PO SCH (06:08)
[2021-05-07] MEDS: Doxycycline 100 MG CAP PO SCH ×2 (06:08→17:41)
[2021-05-07 07:12] LABS: #Basophils 0.1 10x3/uL (0.0-0.2); #Eosinphils 0.1 10x3/uL (0.0-0.5); #Monocytes 1.1 10x3/uL (0.0-1.1); #Neutrophils 7.2 10x3/uL (1.5-8.4); %Eosinophils 0.8 % (0.0-6.0); %Lymphocytes 10.2 % (18.0-47.0); %Monocytes 10.8 % (0.0-10.0); %Neutrophils 70.3 % (40.0-75.0); Hemoglobin 8.6 g/dL (13.5-17.5); Mean Corpuscular Hemoglobin 32.2 pg (27.0-33.0); Mean Corpuscular Volume 94.8 fl (81.2-95.1); Mean Platelet Volume 9.8 fl (7.4-10.4); Platelet Count 258 10x3/uL (150-450); RBC Distribution Width 15.2 % (11.5-14.5); Red Blood Cell (RBC) Count 2.67 10x6/uL (4.32-5.72); White Blood Cell (WBC) Count 10.2 10x3/uL (3.5-10.5)
[2021-05-07 07:22] LABS: Anion Gap 12 mmol/L (10-20); BUN (Urea Nitrogen) 8 mg/dL (8.4-25.7); Calc. Creatinine Clearance 135 mL/min (70-130); Calcium 7.6 mg/dL (7.8-10.44); Carbon Dioxide 31 mmol/L (23-31); Chloride 88 mmol/L (98-107); Glucose 89 mg/dL (83-110); Potassium 3.9 mmol/L (3.5-5.1); Sodium 127 mmol/L (136-145)
[2021-05-07 07:52] LABS: Band 4 % (5-11); Eosinophils 1 % (0-10); Lymphocytes 13 % (21-51); Metamyelocyte 1 % (0-0); Monocytes 11 % (0-10); Neutrophil 69 % (42-75); Reactive Lymphocytes 1 % (0-10)
[2021-05-07 07:54] LABS: MDiff Complete? YES
[2021-05-07 07:55] LABS: Polychromasia SLIGHT = 2-3 cells (100X) (0-2/hpf)
[2021-05-07 07:56] LABS: Basophilic Stippling SLIGHT = 1-2 cells (100X) (None Seen); Platelet Morphology Comment Appears Adequate
[2021-05-07] MEDS ORDERED: Furosemide 40 MG/4 ML VIAL SLOW IVP SCH (08:00)
[2021-05-07] MEDS: metFORMIN 500 MG TAB PO SCH ×2 (08:36→20:59)
[2021-05-07] MEDS: predniSONE 20 MG TAB PO SCH (08:36)
[2021-05-07] MEDS: Prasugrel 10 MG TAB PO SCH (08:36)
[2021-05-07] MEDS: Isosorbide Dinitrate 10 MG TAB PO SCH (08:37)
[2021-05-07] MEDS: Ezetimibe 10 MG TAB PO SCH (08:37)
[2021-05-07] MEDS: Atorvastatin Calcium 20 MG TAB PO SCH (08:37)
[2021-05-07] MEDS: Aspirin 81 mg Enteric Coated Tablet PO SCH (08:37)
[2021-05-07] MEDS: Carvedilol 12.5 MG TAB PO SCH ×2 (08:38→17:41)
[2021-05-07 11:28] LABS: Iron 59 ug/dL (65-175); Iron Binding Capacity, Total 255 mcg/dL (261-462); Magnesium 1.8 mg/dL (1.6-2.6)
[2021-05-07] MEDS: Amoxicillin/Potassium Clav 500 MG TAB PO SCH (14:10)
[2021-05-07 15:31] LABS: SARS-CoV-2 PCR by NAA Not Detected (NotDetected)
[2021-05-07] MEDS: HumaLOG 300 UNITS/3 ML VIAL SC PRN (17:41)
[2021-05-07] MEDS ORDERED: Calcium Gluconate 4.6 MEQ in Sodium Chloride 0.9% 100 ML IVPB SCH (20:00)
[2021-05-08] MEDS: guaiFENesin/Codeine Phosphate 100 mg/10 mg 5 ml UD Cup PO PRN ×2 (00:19→09:04)
[2021-05-08] MEDS: Amoxicillin/Potassium Clav 500 MG TAB PO SCH ×2 (00:19→13:09)
[2021-05-08 04:35] LABS: Anion Gap 12 mmol/L (10-20); BUN (Urea Nitrogen) 10 mg/dL (8.4-25.7); Calc. Creatinine Clearance 119 mL/min (70-130); Calcium 7.8 mg/dL (7.8-10.44); Carbon Dioxide 33 mmol/L (23-31); Chloride 94 mmol/L (98-107); Glucose 107 mg/dL (83-110); Potassium 4.4 mmol/L (3.5-5.1); Sodium 135 mmol/L (136-145)
[2021-05-08] MEDS: Doxycycline 100 MG CAP PO SCH (05:05)
[2021-05-08] MEDS: Acetaminophen 325 MG TAB PO PRN (05:05)
[2021-05-08] MEDS: Levothyroxine Sodium 50 MCG TAB PO SCH (05:05)
[2021-05-08 05:52] LABS: MDiff Complete? YES
[2021-05-08 05:55] LABS: Band 4 % (5-11); Eosinophils 2 % (0-10); Lymphocytes 8 % (21-51); Monocytes 12 % (0-10); Neutrophil 72 % (42-75); Reactive Lymphocytes 2 % (0-10)
[2021-05-08 05:57] LABS: Hemoglobin 8.8 g/dL (13.5-17.5); Mean Corpuscular HGB CONC 33.5 g/dL (32.0-36.0); Mean Corpuscular Hemoglobin 32.1 pg (27.0-33.0); Mean Platelet Volume 9.7 fl (7.4-10.4); Platelet Count 248 10x3/uL (150-450); Platelet Morphology Comment Appears Adequate; RBC Distribution Width 15.5 % (11.5-14.5); RBC Morphology Normal; Red Blood Cell (RBC) Count 2.74 10x6/uL (4.32-5.72); White Blood Cell (WBC) Count 9.8 10x3/uL (3.5-10.5)
[2021-05-08] MEDS: metFORMIN 500 MG TAB PO SCH (09:01)
[2021-05-08] MEDS: Carvedilol 12.5 MG TAB PO SCH (09:01)
[2021-05-08] MEDS: Atorvastatin Calcium 20 MG TAB PO SCH (09:03)
[2021-05-08] MEDS: Ezetimibe 10 MG TAB PO SCH (09:03)
[2021-05-08] MEDS: Prasugrel 10 MG TAB PO SCH (09:03)
[2021-05-08] MEDS: Aspirin 81 mg Enteric Coated Tablet PO SCH (09:03)
[2021-05-08] MEDS: Isosorbide Dinitrate 10 MG TAB PO SCH (09:03)
[2021-05-08 13:12] VITALS: BP 121/65; TEMP 96.4
== END 2021-05-08 13:18 | DRG 73 ==
LOC: CSHERS 10:59 → OBSVTOIN 11:00 → CSHTELE 11:00
PROVIDERS: ADMIT Internal Medicine; ATTEND Hospitalist
DX: E11.43 Type 2 diabetes mellitus with diabetic autonomic (poly)neuropathy (principal); J96.21 Acute and chronic respiratory failure with hypoxia; J44.1 Chronic obstructive pulmonary disease with (acute) exacerbation; C79.51 Secondary malignant neoplasm of bone; E87.1 Hypo-osmolality and hyponatremia; Z20.822 Contact with and (suspected) exposure to COVID-19; I95.1 Orthostatic hypotension; I10 Essential (primary) hypertension; E03.9 Hypothyroidism, unspecified; R35.0 Frequency of micturition; E83.42 Hypomagnesemia; D64.9 Anemia, unspecified; C61 Malignant neoplasm of prostate; E11.59 Type 2 diabetes mellitus with other circulatory complications; R00.0 Tachycardia, unspecified; E78.2 Mixed hyperlipidemia; G47.33 Obstructive sleep apnea (adult) (pediatric); I07.1 Rheumatic tricuspid insufficiency; I25.118 Atherosclerotic heart disease of native coronary artery with other forms of angina pectoris; I44.0 Atrioventricular block, first degree; E83.51 Hypocalcemia; E87.6 Hypokalemia; Z88.8 Allergy status to other drugs, medicaments and biological substances; Z79.82 Long term (current) use of aspirin; Z79.899 Other long term (current) drug therapy; Z95.1 Presence of aortocoronary bypass graft; Z95.5 Presence of coronary angioplasty implant and graft; Z90.49 Acquired absence of other specified parts of digestive tract; Z98.49 Cataract extraction status, unspecified eye
CPT/HCPCS: 0240U; 36415; 36416; 70450; 70553; 71045; 80048; 80053; 81001; 83540; 83550; 83735; 83880; 83930; 83935; 84133; 84300; 84439; 84443; 84484; 84550; 85025; 85046; 85060; 93005; 93010; 93306; 94640; 94760; 96365; 96366; J0610; J1815; J1940; J3475; J3490; J7512; J7620; U0003; U0005